=== PATIENT | female | born 2005 | race Caucasian/White ===

== ENCOUNTER 2025-01-31 08:06 | Emergency (ER) | payer BC, SELFPAY ==
[2025-01-31] MEDS ORDERED: Acetaminophen 325 MG TAB ONE (08:35)
[2025-01-31] MEDS ORDERED: Ondansetron PF 4 MG/2 ML Vial ONE (08:35)
[2025-01-31 08:40] LABS: #Basophils Less than 0.03 10x3/uL (0.0-0.2); #Eosinophils Less than 0.03 10x3/uL (0.0-0.5); #Monocytes 0.66 10x3/uL (0.0-1.1); #Neutrophils 8.19 10x3/uL (1.5-8.4); %Basophils 0.1 % (0.0-2.0); %Eosinophils 0.0 % (0.0-6.0); %Lymphocytes 7.2 % (18.0-47.0); %Monocytes 6.9 % (0.0-10.0); %Neutrophils 85.6 % (40.0-75.0); Hematocrit 41.5 % (34.9-44.5); Hemoglobin 14.1 g/dL (12.0-15.5); Mean Corpuscular Hemoglobin 29.9 pg (27.0-33.0); Mean Corpuscular Volume 88.1 fL (81.6-98.3); Platelet Count 253 10x3/uL (150-450); Red Blood Cell (RBC) Count 4.71 10x6/uL (3.90-5.03); White Blood Cell (WBC) Count 9.57 10x3/uL (3.5-10.5)
[2025-01-31 08:56] LABS: ALT (SGPT) 13 U/L (Less than 34); AST (SGOT) 20 U/L (11-34); Albumin 4.8 g/dL (3.1-4.5); Alkaline Phosphatase 72 U/L (40-100); Anion Gap 22 mmol/L (10-20); BUN (Urea Nitrogen) 8 mg/dL (8.4-21.0); Bilirubin, Total 1.0 mg/dL (0.3-1.2); Calc. Creatinine Clearance 0 mL/min (70-130); Calcium 9.2 mg/dL (7.8-10.44); Carbon Dioxide 15 mmol/L (22-29); Chloride 107 mmol/L (98-107); Globulin 2.9 g/dL (2.4-3.5); Glucose 84 mg/dL (70-105); Potassium 3.8 mmol/L (3.5-5.1); Sodium 140 mmol/L (136-145)
[2025-01-31 10:02] LABS: Glucose, Urine (Dipstick) Normal (Negative); Leukocyte 500 (Negative); Protein, Urine (Dipstick) 30 mg/dl (Neg-Trace); Specific Gravity, Urine 1.025 (1.005-1.030)
[2025-01-31 10:05] LABS: Pregnancy Test - Urine (BHCG) Negative (Negative); Pregu Control Background? CLEAR/WHITE (CLR/WHITE); Pregu Control Bar Appear? YES (CONTROL BAR)
[2025-01-31 10:16] LABS: Bacteria/HPF 4+ HPF (None Seen); CAUTI Indications for Culture Pelvic or flank pain; RBC/HPF 0-3 HPF (0-3); Urine Culture Reflex Yes Yes; WBC/HPF 21-50 HPF (0-3)
[2025-01-31] MEDS ORDERED: cefTRIAXone (ROCEPHIN) 1 GM VIAL ONE (10:26)
[2025-01-31] MEDS ORDERED: Ketorolac Tromethamine 30 MG (1 mL) VIAL ONE (11:07)
== END 2025-01-31 11:51 | disposition home or self-care (01) ==
LOC: CSHERS 08:06
DX: N10 Acute pyelonephritis (principal)
CPT/HCPCS: 36415; 80053; 81001; 81025; 83605; 85025; 87086; 87426; 96374; 96375; J0696; J1885; J2405